=== PATIENT | female | born 1985 | race Caucasian/White ===

== ENCOUNTER 2017-08-24 16:22 | Emergency (ER) | payer OTHER ==
--- NOTE | 2017-08-24 20:51 | ED ---
General Adult HPI - General Chief complaint: Neuro Symptoms/Deficit Stated complaint: Lt face numb Time Seen by Provider: 08/24/17 20:28 Source: patient, RN notes reviewed Mode of arrival: ambulatory Limitations: no limitations - History of Present Illness Initial comments: This is a 32-year-old female who presents to the emergency department with chief complaint of left-sided facial numbness. Patient states that she has been experiencing numbness and tingling of the left side of her face since Thursday. She states that it starts at about eye level and goes down to the mandible. She states that she also noticed numbness to the tip of her tongue. 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 However, patient denies any weakness or pain to the left side of her face. She denies any other symptoms. Denies recent illnesses or infections. Denies fevers or chills, chest pain shortness of breath, abdominal pain, nausea or vomiting. - Related Data Home Medications Medication Instructions Recorded Confirmed FLUoxetine HCL [PROzac] 20 mg PO DAILY 08/24/17 08/24/17 Allergies Allergy/AdvReac Type Severity Reaction Status Date / Time No Known Allergies Allergy Verified 08/24/17 20:31 Review of Systems ROS Statement: Those systems with pertinent positive or pertinent negative responses have been documented in the HPI. ROS Other: All systems not noted in ROS Statement are negative. Past Medical History Past Medical History: No Reported History History of Any Multi-Drug Resistant Organisms: None Reported Past Surgical History: No Surgical Hx Reported Past Psychological History: No Psychological Hx Reported Smoking Status: Never smoker Past Alcohol Use History: None Reported Past Drug Use History: None Reported General Exam - General Exam Comments Initial Comments: General: Awake and alert, well-developed; in no apparent distress. HEENT: Head atraumatic, normocephalic. Pupils are equal, round and reactive to light. Extraocular movements intact. Oropharynx moist without erythema or exudate. Neck: Supple. Normal ROM. Cardiovascular: Regular rate and rhythm. No murmurs, rubs or gallops. Chest symmetrical. Respiratory: Lungs clear to auscultation bilaterally. No wheezes, rales or rhonchi. Normal respiratory effort with no use of accessory muscles. Musculoskeletal: Normal ROM, no tenderness, strength 5/5 bilateral upper and lower extremities. Ambulating normally. Skin: [place], warm and dry without rashes or lesions. Neurological: Alert and oriented x3. CN II-XII grossly intact. Altered sensation to the left side of face with sparing of forehead. No motor deficits. Speech is fluent and answers are appropriate. No focal neuro deficits. Psychiatric: Normal mood and affect. No overt signs of depression or anxiety noted. Limitations: no limitations Course Vital Signs 08/24/17 08/24/17 17:37 21:58 Temperature 98.6 F 97.1 F L Pulse Rate 62 54 L Respiratory 18 16 Rate Blood Pressure 117/74 114/76 O2 Sat by Pulse 98 97 Oximetry Medical Decision Making - Medical Decision Making This is a 32-year-old female who presented to the emergency department with chief complaint of left-sided facial numbness. This began on Thursday. Denies weakness or pain. On physical examination, there are no motor deficits. Patient does experience odd sensation with palpation into the left side of the face. Discussed computed tomography scan and checking of basic labs with patient who does state she would like to go through with it for "peace of mind. " Computed tomography scan revealed no acute abnormalities. CBC was within normal limits. CMP revealed a slightly elevated chloride, however everything else was within normal limits. Vital signs are stable and patient is in no acute distress. Recommended following up with her primary care provider within 1-2 days and return to emergency department if any new or concerning symptoms arise. Patient is in agreement with plan voices understanding. She will be discharged home at this time. All questions answered. - Lab Data Result diagrams: 08/24/17 21:09 08/24/17 21:09 Lab Results 08/24/17 08/24/17 Range/Units 21:09 21:09 WBC 5.8 (3.8-10.6) k/uL RBC 4.49 (3.80-5.40) m/uL Hgb 13.7 (11.4-16.0) gm/dL Hct 40.0 (34.0-46.0) % MCV 88.9 (80.0-100.0) fL MCH 30.5 (25.0-35.0) pg MCHC 34.3 (31.0-37.0) g/dL RDW 13.0 (11.5-15.5) % Plt Count 185 (150-450) k/uL Neutrophils % 62 % Lymphocytes % 25 % Monocytes % 6 % Eosinophils % 4 % Basophils % 0 % Neutrophils # 3.6 (1.3-7.7) k/uL Lymphocytes # 1.5 (1.0-4.8) k/uL Monocytes # 0.4 (0-1.0) k/uL Eosinophils # 0.2 (0-0.7) k/uL Basophils # 0.0 (0-0.2) k/uL Sodium 141 (137-145) mmol/L Potassium 3.8 (3.5-5.1) mmol/L Chloride 112 H (98-107) mmol/L Carbon Dioxide 23 (22-30) mmol/L Anion Gap 6 mmol/L BUN 13 (7-17) mg/dL Creatinine 0.60 (0.52-1.04) mg/dL Est GFR (CKD-EPI)AfAm >90 (>60 ml/min/1.73 sqM) Est GFR (CKD-EPI)NonAf >90 (>60 ml/min/1.73 sqM) Glucose 82 (74-99) mg/dL Calcium 8.6 (8.4-10.2) mg/dL Total Bilirubin 0.4 (0.2-1.3) mg/dL AST 18 (14-36) U/L ALT 28 (9-52) U/L Alkaline Phosphatase 54 (38-126) U/L Total Protein 6.3 (6.3-8.2) g/dL Albumin 3.6 (3.5-5.0) g/dL - Radiology Data Radiology results: report reviewed Computed tomography scan of the brain without contrast impression: Normal computed tomography scan of the brain. As read by Dr. Smith. Disposition Clinical Impression: Facial paresthesia Disposition: HOME SELF-CARE Condition: Good Instructions: Paresthesia (ED) Additional Instructions: Please follow up with primary care provider within 1-2 days. Return to emergency department if symptoms should worsen or any concerns arise. Is patient prescribed a controlled substance at d/c from ED?: No Referrals: Lindsay Almanza NPC [REFERRING] - 1-2 days Time of Disposition: 22:21
[2017-08-24 21:17] LABS: Basophils % (A) 0 %; Eosinophils # (A) 0.2 k/uL (0-0.7); Eosinophils % (A) 4 %; HGB 13.7 gm/dL (11.4-16.0); Lymphocytes # (A) 1.5 k/uL (1.0-4.8); Lymphocytes % (A) 25 %; MCH 30.5 pg (25.0-35.0); MCHC 34.3 g/dL (31.0-37.0); MCV 88.9 fL (80.0-100.0); Mean Platelet Volume 7.2; Monocytes # (A) 0.4 k/uL (0-1.0); Monocytes % (A) 6 %; Neutrophils # (A) 3.6 k/uL (1.3-7.7); Neutrophils % (A) 62 %; Platelet Count 185 k/uL (150-450); RBC 4.49 m/uL (3.80-5.40); WBC 5.8 k/uL (3.8-10.6)
[2017-08-24 21:26] LABS: ALT 28 U/L (9-52); AST 18 U/L (14-36); Albumin 3.6 g/dL (3.5-5.0); Alkaline Phosphatase 54 U/L (38-126); Anion Gap 6 mmol/L; Blood Urea Nitrogen 13 mg/dL (7-17); Calcium 8.6 mg/dL (8.4-10.2); Carbon Dioxide 23 mmol/L (22-30); Chloride 112 mmol/L (98-107); Glucose 82 mg/dL (74-99); Potassium 3.8 mmol/L (3.5-5.1); Sodium 141 mmol/L (137-145); Total Bilirubin 0.4 mg/dL (0.2-1.3); Total Protein 6.3 g/dL (6.3-8.2)
--- NOTE | 2017-08-24 21:57 | CT ---
EXAMINATION TYPE: CT brain wo con DATE OF EXAM: 08/24/2017 COMPARISON: None HISTORY: left sided facial numbness X [address] DLP: 963.6 mGycm. Automated Exposure Control for Dose Reduction was Utilized. TECHNIQUE: CT scan of the head is performed without contrast. FINDINGS: Ventricles of normal size. There is no mass effect nor midline shift. There is no sign of intracranial hemorrhage. The calvarium is intact. IMPRESSION: Normal CT scan of the brain.
[2017-08-24 21:59] VITALS: RESP 16; TEMP 97.1
[2017-08-24 22:39] VITALS: BP 110/74; PULSE 57
== END 2017-08-24 22:38 | disposition home or self-care (01) ==
LOC: EC 16:22
DX: R20.2 Paresthesia of skin (principal); Z79.899 Other long term (current) drug therapy
CPT/HCPCS: 36415; 70450; 80053; 85025; 99284

== ENCOUNTER 2019-04-05 06:15 | Inpatient (IN) | payer BC, OTHER ==
--- NOTE | 2019-04-04 19:29 | P.HPOB ---
History of Present Illness H&P Date: 04/04/19 Chief Complaint: Induction of labor This is a 34 y.o. female, 5, para 3, with an estimated date of confinement of 04/05/2019, estimated gestational age of 40-0/7 weeks, who presents for induction of labor. She admits to good movement and irregular contractions. has been uncomplicated. labs: Hepatitis B surface antigen-neg RPR-NR Rubella-immune Blood type-A+ Antibody screen-neg HIV-NR Hemoglobin-13.4 Toxoplasma-neg Random glucose-78 1 hr. GTT-139, 3 hr. GTT-wnl GBS-neg OB Hx: . Hx of 3 vaginal deliveries and 1 miscarriage. [place] Hx: No hx STDs. Review of Systems Constitutional: Denies chills, Denies fever Eyes: denies blurred vision, denies pain Ears, nose, mouth and throat: Denies headache, Denies sore throat Cardiovascular: Denies chest pain, Denies shortness of breath Respiratory: Denies cough Gastrointestinal: Reports abdominal pain (irreg. ctxs) Genitourinary: Reports pelvic pain, Reports Musculoskeletal: Reports low back pain Integumentary: Denies pruritus, Denies rash Neurological: Denies numbness, Denies weakness Past Medical History Past Medical History: No Reported History History of Any Multi-Drug Resistant Organisms: None Reported Past Surgical History: No Surgical Hx Reported Past Psychological History: No Psychological Hx Reported Smoking Status: Never smoker Past Alcohol Use History: None Reported Past Drug Use History: None Reported - Past Family History Mother Family Medical History: Diabetes Mellitus, Hypertension Medications and Allergies Home Medications Medication Instructions Recorded Confirmed Type 78/Iron/Folate 1/Dha 04/04/19 History [Prenate Dha Softgel] Allergies Allergy/AdvReac Type Severity Reaction Status Date / Time No Known Allergies Allergy Verified 08/24/17 20:31 Exam Osteopathic Statement: *. No significant issues noted on an osteopathic structural exam other than those noted in the History and Physical/Consult. HEENT: within normal limits Heart: regular rate and rhythm Lungs: clear to auscultation bilaterally Abdomen: heart tones:140's by doppler Extremities: Neg. Haile's Assessment and Plan (1) 40 weeks gestation of Status: Acute Code(s): Z3A.40 - 40 WEEKS GESTATION OF SNOMED Code(s): 53931630 Plan: Admission for induction of labor. Expectant management. Epidural anesthesia if desired.
[2019-04-05] MEDS ORDERED: OXYTOCIN 10 UNIT/ML 1 ML VIAL IM PRN (06:21)
[2019-04-05] MEDS ORDERED: LIDOCAINE 0.5% (PF) 5 MG/ML (50 ML SDV) SQ PRN (06:21)
[2019-04-05] MEDS ORDERED: METHYLERGONOVINE 0.2 MG/ML 1 ML AMP IM PRN (06:21)
[2019-04-05] MEDS ORDERED: TERBUTALINE 1 MG/ML VIAL SQ PRN (06:21)
[2019-04-05] MEDS ORDERED: LIDOCAINE 1% 20 ML VIAL (10MG/ML) FOR IV START INTRADERMA PRN (06:21)
[2019-04-05] MEDS ORDERED: CARBOPROST TROMETHAMINE 250 MCG/ML 1 ML AMP IM PRN (06:21)
[2019-04-05] MEDS ORDERED: OXYTOCIN 30 UNITS/500 ML NS 30 UNIT in SALINE 1 500ML.BAG IV SCH (06:21)
[2019-04-05] MEDS: LACTATED RINGERS 1,000 ML IV SCH ×2 (06:30→10:20)
[2019-04-05 06:41] LABS: Basophils % (A) 0 %; Eosinophils # (A) 0.2 k/uL (0-0.7); Eosinophils % (A) 2 %; HCT 34.6 % (34.0-46.0); HGB 11.5 gm/dL (11.4-16.0); Lymphocytes % (A) 13 %; MCH 28.7 pg (25.0-35.0); MCHC 33.2 g/dL (31.0-37.0); MCV 86.6 fL (80.0-100.0); Mean Platelet Volume 8.4; Monocytes # (A) 0.5 k/uL (0-1.0); Monocytes % (A) 6 %; Neutrophils # (A) 5.8 k/uL (1.3-7.7); Neutrophils % (A) 76 %; Platelet Count 142 k/uL (150-450); RDW 14.2 % (11.5-15.5); WBC 7.6 k/uL (3.8-10.6)
[2019-04-05] MEDS ORDERED: fentaNYL (PF) 50 MCG/ML 5 ML AMP ONE (09:52)
[2019-04-05] MEDS ORDERED: ROPIVACAINE 5MG/ML 20ML VIAL ONE (09:52)
[2019-04-05] MEDS ORDERED: SODIUM CHLORIDE 0.9% 100 ML BAG ONE (09:52)
[2019-04-05] MEDS ORDERED: ACETAMINOPHEN TAB 325 MG TAB PO PRN (12:05)
[2019-04-05] MEDS ORDERED: diphenhydrAMINE 25 MG CAP PO PRN (12:05)
[2019-04-05] MEDS ORDERED: WITCH HAZEL 1 EACH MED..PAD TOPICAL PRN (12:05)
[2019-04-05] MEDS ORDERED: diphenhydrAMINE 50 MG/ML 1 ML VIAL IVP PRN ×2 (12:05)
[2019-04-05] MEDS ORDERED: OXYTOCIN 20 UNITS/1000 ML NS 1,000 ML IV SCH (12:05)
[2019-04-05] MEDS ORDERED: SIMETHICONE 80 MG CHEWABLE PO PRN (12:05)
[2019-04-05] MEDS ORDERED: diphenhydrAMINE 50 MG CAP PO PRN (12:05)
[2019-04-05] MEDS ORDERED: BENZOCAINE/MENTHOL SPRAY 1 GM/SPRAY AEROSOL TOPICAL PRN (12:05)
[2019-04-05] MEDS ORDERED: LANOLIN CREAM 5 GM TUBE TOPICAL PRN (12:05)
[2019-04-05] MEDS ORDERED: ZOLPIDEM 5 MG TAB PO PRN (12:05)
[2019-04-05] MEDS ORDERED: HYDROCORTISONE 2.5% RECTAL CREAM 30 GM TUBE RECTAL PRN (12:05)
--- NOTE | 2019-04-05 12:40 | P.PROBDLV ---
Vaginal Delivery Note - . Vaginal Delivery Note: The patient progressed to complete dilation after oxytocin induction of labor and artificial rupture of membranes with clear fluid noted. She did receive epidural anesthesia while in labor. Once reaching complete dilation, she began pushing. Infant's head came to a crown. With one further push, the 's head delivered across the perineum followed by the anterior shoulder. Nose and mouth are bulb suctioned at the perineum. With one further push, the remainder the easily delivered and was placed on mother's abdomen. Cord was clamped and cut and was taken to warmer for evaluation. A viable male was noted with scores of 8 at 1 minute and 9 at 5 minutes and weight of 8 lbs. 8 oz. Placenta delivered shortly thereafter, intact, with a three-vessel cord. Uterus contracted well after oxytocin was given and uterine massage was carried out. Her bladder was drained with a straight cath after delivery. nspection of the perineum revealed no perineal lacerations. Estimated blood loss is approximately 150 mL's. Both mother and are in stable condition.
[2019-04-05] MEDS: IBUPROFEN 600 MG TAB PO PRN ×2 (14:50→20:13)
[2019-04-05] MEDS ORDERED: SENNOSIDES-DOCUSATE SODIUM 1 EACH TAB PO SCH (20:00)
[2019-04-06 05:33] VITALS: RESP 14
[2019-04-06 06:54] LABS: Basophils % (A) 0 %; Eosinophils # (A) 0.2 k/uL (0-0.7); Eosinophils % (A) 2 %; HCT 32.8 % (34.0-46.0); HGB 10.6 gm/dL (11.4-16.0); Hypochromasia Slight; Lymphocytes # (A) 1.2 k/uL (1.0-4.8); Lymphocytes % (A) 13 %; MCH 28.5 pg (25.0-35.0); MCHC 32.3 g/dL (31.0-37.0); Mean Platelet Volume 8.9; Monocytes # (A) 0.4 k/uL (0-1.0); Monocytes % (A) 5 %; Neutrophils # (A) 7.1 k/uL (1.3-7.7); Neutrophils % (A) 77 %; Platelet Count 147 k/uL (150-450); RBC 3.73 m/uL (3.80-5.40); RDW 14.1 % (11.5-15.5); WBC 9.2 k/uL (3.8-10.6)
[2019-04-06] MEDS: IBUPROFEN 600 MG TAB PO PRN (07:37)
[2019-04-06 08:01] VITALS: BP 114/57; PULSE 65; TEMP 96.9
--- NOTE | 2019-04-06 08:20 | P.DS ---
Providers Date of admission: 04/05/19 06:15 Expected date of discharge: 04/06/19 Attending physician: Babs Shaikh Primary care physician: Stated None - Discharge Diagnosis(es) (1) 40 weeks gestation of Current Visit: No Status: Acute Hospital Course: This is a 34-year-old female 5 para 3 at 40-0/7 weeks who presented for induction of labor. She underwent oxytocin induction of labor and delivered vaginally a viable male on 04/05/2019 with scores of 8 at 1 minute and 9 at 5 minutes and infant weight of 8 lbs. 8 oz. Her course has been uncomplicated. Lochia is decreasing. She is bottle feeding. Vital signs are stable. Abdomen is soft with fundus firm and nontender. Extremities show negative Homans. Impression is status post vaginal delivery day #1. Plan is to discharge home today. Routine instructions are given. She is advised to call the office if she has any further questions or concerns prior to her primary time. She will be given a prescription for ibuprofen. She is instructed to follow-up in the office in 6 weeks for check. Procedures: Oxytocin induction of labor Spontaneous vaginal delivery of a viable male infant on 04/05/2019 Patient Condition at Discharge: Stable Plan - Discharge Summary New Discharge Prescriptions: New RX: Ibuprofen [Motrin] 600 mg PO Q6HR PRN #60 tab PRN Reason: Mild Pain Or Fever >= 100.5 No Action RX: 78/Iron/Folate 1/Dha [Prenate Dha Softgel] 1 tab PO ONCE Discharge Medication List RX: 78/Iron/Folate 1/Dha [Prenate Dha Softgel] 1 tab PO ONCE 04/04/19 [History] RX: Ibuprofen [Motrin] 600 mg PO Q6HR PRN #60 tab 04/06/19 [Rx] Follow up Appointment(s)/Referral(s): Babs Shaikh DO [Doctor of Osteopathic Medicine] - 6 Weeks Activity/Diet/Wound Care/Special Instructions: Instructions 1. Do not begin any exercise program for 3 weeks. 2. Do not resume sexual relations for 3 weeks or longer if uncomfortable. 3. You may take tub baths or showers at any time. 4. You may use tampons if desired after 3 weeks. 5. Keep the area of episiotomy (stitches) clean and dry. 6. If you are not nursing, wear a good fitting, supportive bra during the day and limit fluid intake for at least 1 week to prevent breast engorgement. 7. Call the office, [phone], within the next week to make appointment for your 6 week checkup if it has not already been made. 8. Report any of the following occurrences to the doctor promptly: a. Heavy, excessive bleeding b. Chills, fever c. Burning or frequency of urination d. Pain or redness and breasts if nursing e. Increasing pain or swelling in episiotomy (stitches). In addition to the above instructions, the following additional should be followed: 1. No heavy lifting or straining (exercising) until after 6 week checkup. 2. Keep abdominal incision clean and dry: You may wear a dressing if more comfortable. 3. Make office appointment for 10 days after going home or as instructed by her doctor. Discharge Disposition: HOME SELF-CARE
== END 2019-04-06 11:15 | disposition home or self-care (01) | DRG 807 ==
LOC: 4FBP 06:15
PROVIDERS: ADMIT Obstetrics & Gynecology; ATTEND Obstetrics & Gynecology
PROC: 00HU33Z Insertion of Infusion Device into Spinal Canal, Percutaneous Approach (ICD-10-PCS; principal; 2019-04-05)
PROC: 3E033VJ Introduction of Other Hormone into Peripheral Vein, Percutaneous Approach (ICD-10-PCS; principal; 2019-04-05)
PROC: 10E0XZZ Delivery of Products of Conception, External Approach (ICD-10-PCS; principal; 2019-04-05)
PROC: 3E0R3BZ Introduction of Anesthetic Agent into Spinal Canal, Percutaneous Approach (ICD-10-PCS; principal; 2019-04-05)
PROC: 10907ZC Drainage of Amniotic Fluid, Therapeutic from Products of Conception, Via Natural or Artificial Opening (ICD-10-PCS; principal; 2019-04-05)
DX: O80 Encounter for full-term uncomplicated delivery (principal); Z37.0 Single live birth; Z3A.40 40 weeks gestation of pregnancy; Z79.899 Other long term (current) drug therapy; Z83.3 Family history of diabetes mellitus; Z82.49 Family history of ischemic heart disease and other diseases of the circulatory system
CPT/HCPCS: 85025; 86850; 86900; 86901

== ENCOUNTER → 2022-07-21 | Outpatient (CLI) | payer OTHER ==
--- NOTE | 2022-07-21 15:10 | US ---
EXAMINATION TYPE: Transabdominal DATE OF EXAM: 07/21/2022 2:09 PM COMPARISON: NONE CLINICAL INDICATION: Female, 37 years old with history of Z36.89 ENCOUNTER FOR OTHER SPECIFIED ANTENA CHAGO SCR; Pt states confirm dates, no complaints at this time EXAM PERFORMED: Transabdominal (TA) EXAM MEASUREMENTS: GESTATIONAL AGE / DATING Physician Established: (8 weeks/2 days) EDC: 02/28/2023 Dates by LMP: (8 weeks/2 days) EDC: 02/28/2023 Dates by First Scan: No previous this is first scan Dates by Current Scan for: (8 weeks/3 days) EDC: 02/27/2023 MATERNAL ANATOMY Uterus: 11.3 x 6.0 x 7.8 cm Right Ovary: 3.5 x 2.0 x 2.2 cm Left Ovary: 3.5 x 2.6 x 2.5 cm Post CDS / Adnexa: wnl Presence of free fluid: No Presence of subchorionic bleed: No GESTATION / SURVEY CRL: 1.9 (8 weeks/3 days) MSD: wnl Yolk Sac (normal less than 6mm): 4mm Heart Rate: 169 bpm Rhythm: Normal IUP: Viable IUP Date of LMP: 05/24/2022 Single, viable IUP/ No abnormality visualized at this time IMPRESSION: Single viable intrauterine as noted above.
== END | disposition home or self-care (01) ==
LOC: RADUSWWP 13:39
PROVIDERS: ATTEND Obstetrics & Gynecology
DX: Z36.89 Encounter for other specified antenatal screening (principal)
CPT/HCPCS: 76801

== ENCOUNTER 2023-02-25 22:42 | Inpatient (IN) | payer OTHER ==
[2023-02-25 23:17] LABS: Glucose,Whole Blood 115 mg/dL (70-110)
[2023-02-25] MEDS ORDERED: OXYTOCIN 10 UNIT/ML 1 ML VIAL IM PRN (23:18)
[2023-02-25] MEDS ORDERED: miSOPROStoL 200 MCG TAB PO PRN (23:18)
[2023-02-25] MEDS ORDERED: CARBOPROST TROMETHAMINE 250 MCG/ML 1 ML AMP IM PRN (23:18)
[2023-02-25] MEDS ORDERED: TRANEXAMIC 1,000 MG/100ML-NACL 1,000 MG in EMPTY BAG 1 BAG IV PRN (23:18)
[2023-02-25] MEDS ORDERED: METHYLERGONOVINE 0.2 MG/ML 1 ML AMP IM PRN (23:18)
[2023-02-25] MEDS ORDERED: LIDOCAINE 0.5% (PF) 5 MG/ML (50 ML SDV) SQ PRN (23:18)
[2023-02-25] MEDS ORDERED: TERBUTALINE 1 MG/ML VIAL SQ PRN (23:18)
[2023-02-25] MEDS ORDERED: LACTATED RINGERS 1,000 ML IV SCH (23:30)
[2023-02-25] MEDS ORDERED: OXYTOCIN 30 UNITS/500 ML NS 30 UNIT in SALINE 1 500ML.BAG IV SCH (23:30)
[2023-02-25 23:37] LABS: Basophils % (A) 0 %; Eosinophils # (A) 0.3 k/uL (0-0.7); Eosinophils % (A) 3 %; HCT 36.6 % (34.0-46.0); HGB 11.8 gm/dL (11.4-16.0); Lymphocytes # (A) 1.2 k/uL (1.0-4.8); Lymphocytes % (A) 10 %; MCH 28.9 pg (25.0-35.0); MCHC 32.3 g/dL (31.0-37.0); MCV 89.3 fL (80.0-100.0); Mean Platelet Volume 9.9; Monocytes # (A) 0.7 k/uL (0-1.0); Monocytes % (A) 6 %; Neutrophils # (A) 9.3 k/uL (1.3-7.7); Neutrophils % (A) 79 %; Platelet Count 153 k/uL (150-450); RDW 14.7 % (11.5-15.5); WBC 11.7 k/uL (3.8-10.6)
--- NOTE | 2023-02-25 23:44 | P.HPOB ---
History of Present Illness H&P Date: 02/25/23 Chief Complaint: Contractions This patient is a pleasant 37-year-old 6 para 4 female estimated date of confinement 02/28/2023 estimated gestational age 39-4/7 weeks who presents to labor and delivery with complaints of contractions that she states began yesterday. On admission patient is 7 cm dilated in active labor. care is complicated by insulin-dependent gestational diabetes which she states has good control. This has been managed by maternal medicine. is also complicated by advanced maternal age and she has been on baby aspirin since 12 weeks. She's had normal anatomy ultrasounds and declined other genetic testing. Patient did have an abnormal quad screen with an increased risk of Down syndrome. Patient's most recent ultrasound states she was 7-1/2 pounds. Review of Systems Genitourinary: Reports Menstruation: Reports amenorrhea Past Medical History Past Medical History: No Reported History Additional Past Medical History / Comment(s): For previous vaginal deliveries uncomplicated. History of Any Multi-Drug Resistant Organisms: None Reported Past Surgical History: No Surgical Hx Reported Additional Past Surgical History / Comment(s): dental work Past Anesthesia/Blood Transfusion Reactions: No Reported Reaction Smoking Status: Never smoker - Past Family History Mother Family Medical History: Diabetes Mellitus, Hypertension Medications and Allergies Home Medications Medication Instructions Recorded Confirmed Type 78/Iron/Folate 1/Dha 1 tab PO ONCE 04/04/19 04/05/19 History [Prenate Dha Softgel] Allergies Allergy/AdvReac Type Severity Reaction Status Date / Time No Known Allergies Allergy Verified 02/25/23 22:50 Exam Intake and Output 02/25/23 02/25/23 02/26/23 14:59 22:59 06:59 Other: Weight 90.265 kg - OBG Physical Exam Abdomen: bowel sounds normal, no diffuse tenderness, no bruit present, no guarding noted, no hepatomegaly, no splenomegaly, no mass Vulva: both: normal Vagina: normal moisture, no discharge Cervix: no lesion (Cervix is 8 cm dilated and -2 station vertex), no discharge Uterus: enlarged Results blood work shows she is a positive, rubella immune, RPR is nonreactive, HIV is nonreactive, group B strep was negative, Glucola was 201. Patient did have an abnormal quad screen was negative maternal medicine evaluation. Result Diagrams: 02/25/23 23:17 Abnormal Lab Results - Last 24 Hours (Table) 02/25/23 02/25/23 Range/Units 23:15 23:17 WBC 11.7 H (3.8-10.6) k/uL Neutrophils # 9.3 H (1.3-7.7) k/uL POC Glucose (mg/dL) 115 H (70-110) mg/dL Assessment and Plan Assessment: This is a pleasant 37-year-old 6 para 4 female 39-4/7 weeks gestation with insulin-dependent gestational diabetes, abnormal quad screen with increased risk of Down syndrome, and active labor. Plan at this time is anticipate vaginal delivery. I did discuss pain control options with the patient this time she declines an epidural. (1) 39 weeks gestation of Current Visit: Yes Status: Acute Code(s): Z3A.39 - 39 WEEKS GESTATION OF SNOMED Code(s): 73445958 (2) Gestational diabetes Current Visit: Yes Status: Acute Code(s): O24.419 - GESTATIONAL DIABETES MELLITUS IN , UNSP CONTROL SNOMED Code(s): 21568934 (3) Elderly multigravida Current Visit: Yes Status: Acute Code(s): O09.529 - SUPERVISION OF ELDERLY MULTIGRAVIDA, UNSPECIFIED TRIMESTER SNOMED Code(s): 861879754 (4) Active labor Current Visit: Yes Status: Acute Code(s): QID2905 - SNOMED Code(s): 659123104
[2023-02-26] MEDS ORDERED: HYDROCORTISONE 2.5% RECTAL CREAM 30 GM TUBE RECTAL PRN (00:08)
[2023-02-26] MEDS ORDERED: LANOLIN CREAM 5 GM TUBE TOPICAL PRN (00:08)
[2023-02-26] MEDS ORDERED: ACETAMINOPHEN TAB 325 MG TAB PO PRN (00:08)
[2023-02-26] MEDS ORDERED: BENZOCAINE/MENTHOL SPRAY 1 GM/SPRAY AEROSOL TOPICAL PRN (00:08)
[2023-02-26] MEDS ORDERED: ZOLPIDEM 5 MG TAB PO PRN (00:08)
[2023-02-26] MEDS ORDERED: SIMETHICONE 80 MG CHEWABLE PO PRN (00:08)
[2023-02-26] MEDS ORDERED: diphenhydrAMINE 25 MG CAP PO PRN (00:08)
[2023-02-26] MEDS ORDERED: diphenhydrAMINE 50 MG/ML 1 ML VIAL IVP PRN (00:08)
--- NOTE | 2023-02-26 00:14 | P.PROBDLV ---
Vaginal Delivery Note - . Vaginal Delivery Note: Normal spontaneous vaginal delivery viable male Apgars 9 and 9 delivery time was 2358 hrs. Please see dictated H&P for intimate details of this patient's admission. In brief summary this is a pleasant 37-year-old 6 para 4 female 39-4/7 weeks who is admitted to labor and delivery in active labor. Patient is artificial rupture membranes at 8 cm dilated for clear fluid. Labor quickly progresses thereafter and she gets to complete. Patient pushes the head to the perineum the posterior perineum was supported. We have controlled delivery of infant's head over the intact perineum. Mouth and nares are bulb suctioned. Infant's head is straight occiput anterior presentation. There is no evidence of a nuchal cord. With gentle downward traction we then have deliver the anterior and posterior shoulder and rest this infant's body. This is a vigorous viable male Apgars are 9 and 9 delivery time is 2358 hrs. has spontaneous respirations and good cry and grossly appears normal. After delivery of the infant the umbilical cord is allowed to quit pulsating and it is then doubly clamped and cut. It appears to be trivascular. The placenta is then spontaneously delivered intact. Estimated blood loss is approximately 50 mL. There are no lacerations and no repairs required. and mother are stable in delivery room. All counts are correct 3. There are no complications.
[2023-02-26] MEDS ORDERED: OXYTOCIN 30 UNITS/500 ML NS 30 UNIT in SALINE 1 500ML.BAG IV SCH (00:15)
[2023-02-26] MEDS: IBUPROFEN 600 MG TAB PO PRN ×2 (04:48→10:53)
[2023-02-26] MEDS ORDERED: bisacodyL 10 MG SUPP RECTAL PRN (09:00)
[2023-02-26] MEDS: SENNOSIDES-DOCUSATE SODIUM 1 EACH TAB PO SCH ×2 (09:00→21:06)
[2023-02-26 15:49] VITALS: RESP 16
--- NOTE | 2023-02-27 06:35 | P.PNOBGVD ---
Subjective - Subjective Patient reports: Reports appetite normal, Reports voiding normally, Reports pain well controlled, Reports ambulating normally : doing well Objective - Latest Vital Signs Latest vital signs: Vital Signs Temp Pulse Resp BP Pulse Ox 02/27/23 00:00 96.6 F L 74 16 126/72 02/26/23 15:25 98.9 F 68 16 122/80 97 02/26/23 12:00 98.1 F 73 17 124/75 96 02/26/23 07:57 98.6 F 60 16 109/59 Intake and Output 02/26/23 02/26/23 02/27/23 14:59 22:59 06:59 Other: # Voids 1 2 - Exam Lungs: bilateral: normal Chest: Normal S1, Normal S2 Extremities: Present: normal Abdomen: Present: normal appearance, soft Uterus: Present: normal, firm Assessment and Plan Assessment: Post day #1. Patient is resting without complaints and wishes to go uli e. Vital signs are stable and she is afebrile. Uterus is firm nontender and she is having normal lochia. My impression is normal course. Plan is to continue routine care and discharge home later today. (1) 39 weeks gestation of Current Visit: Yes Status: Acute Code(s): Z3A.39 - 39 WEEKS GESTATION OF SNOMED Code(s): 84355205 (2) Gestational diabetes Current Visit: Yes Status: Acute Code(s): O24.419 - GESTATIONAL DIABETES MELLITUS IN , UNSP CONTROL SNOMED Code(s): 34076363 (3) Elderly multigravida Current Visit: Yes Status: Acute Code(s): O09.529 - SUPERVISION OF ELDERLY MULTIGRAVIDA, UNSPECIFIED TRIMESTER SNOMED Code(s): 161827798 (4) Active labor Current Visit: Yes Status: Acute Code(s): BDD8983 - SNOMED Code(s): 966341546
--- NOTE | 2023-02-27 06:39 | P.DS ---
Providers Date of admission: 02/25/23 23:04 Expected date of discharge: 02/27/23 Attending physician: Babs Shaikh Primary care physician: Stated None - Discharge Diagnosis(es) (1) 39 weeks gestation of Current Visit: Yes Status: Acute (2) Gestational diabetes Current Visit: Yes Status: Acute (3) Elderly multigravida Current Visit: Yes Status: Acute (4) Active labor Current Visit: Yes Status: Acute Hospital Course: Please see dictated H&P for intimate details of this patient's admission. Brief summary this pleasant 37-year-old 6 para 4 female 39-4/7 weeks gestation admitted to labor and delivery in active labor. Patient quickly goes on to have a vaginal delivery viable male infant. Please see dictated delivery note. Po stpartum day 1 patient's felt be stable for discharge home follow up with Dr. Flores 6 weeks. Procedures: Normal spontaneous vaginal delivery Patient Condition at Discharge: Good Plan - Discharge Summary New Discharge Prescriptions: New Ibuprofen [Motrin] 600 mg PO Q6HR PRN #30 tab PRN Reason: Mild Pain (Scale 1 To 3) No Action 78/Iron/Folate 1/Dha [Prenate Dha Softgel] 1 tab PO ONCE Discharge Medication List 78/Iron/Folate 1/Dha [Prenate Dha Softgel] 1 tab PO ONCE 04/04/19 [History] Ibuprofen [Motrin] 600 mg PO Q6HR PRN #30 tab 02/27/23 [Rx] Follow up Appointment(s)/Referral(s): Babs Shaikh DO [Doctor of Osteopathic Medicine] - 04/14/23 11:30 am Patient Instructions/Handouts: Vaginal Delivery (DC) Activity/Diet/Wound Care/Special Instructions: No intercourse or anything per vagina for 6 weeks. Please call if any fever, chills, excessive vaginal bleeding, and/or abdominal pain Discharge Disposition: HOME SELF-CARE
[2023-02-27 07:21] LABS: Basophils % (A) 0 %; Eosinophils # (A) 0.4 k/uL (0-0.7); Eosinophils % (A) 5 %; HCT 37.4 % (34.0-46.0); HGB 12.4 gm/dL (11.4-16.0); Lymphocytes # (A) 1.1 k/uL (1.0-4.8); Lymphocytes % (A) 13 %; MCH 30.3 pg (25.0-35.0); MCV 91.8 fL (80.0-100.0); Mean Platelet Volume 9.3; Monocytes # (A) 0.4 k/uL (0-1.0); Monocytes % (A) 5 %; Neutrophils # (A) 6.1 k/uL (1.3-7.7); Neutrophils % (A) 74 %; Platelet Count 137 k/uL (150-450); RBC 4.08 m/uL (3.80-5.40); RDW 14.7 % (11.5-15.5); WBC 8.2 k/uL (3.8-10.6)
[2023-02-27] MEDS: SENNOSIDES-DOCUSATE SODIUM 1 EACH TAB PO SCH (08:15)
[2023-02-27 08:27] VITALS: BP 128/72; PULSE 70; TEMP 98.6
--- NOTE | 2023-03-02 06:55 | P.MSEPDOC ---
Presenting Problems - Arrival Data Date of Arrival on Unit: 02/25/23 Time of Arrival on Unit: 23:00 Mode of Transport: Wheelchair - Complaint OB-Reason for Admission/Chief Complaint: Possible Onset of Labor Comment: Pt presents to triage with c/o cx since 1929, 3-5 min apart Medical History - Information : 6 Para: 4 Term: 4 : 0 Abortions: Spontaneous or Elective: 1 Number of Living Children: 4 - Gestational Age Gestational Age by DUDLEY (wks/days): 39 Weeks and 5 Days - History Complications: GDM Review of Systems - Review of Systems Constitutional: No problems Breast: No problems ENT: No problems Cardiovascular: No problems Respiratory: No problems Gastrointestinal: No problems Genitourinary: No problems Musculoskeletal: No problems Neurological: No problems Skin: No problems Vital Signs - Temperature Temperature: 98.6 F Temperature Source: Oral - Pulse Pulse Oximetery Pulse Rate: 70 Pulse Assessment Method: Pulse Oximetry - Respirations Respiratory Rate: 16 Oxygen Delivery Method: Room Air O2 Sat by Pulse Oximetry: 99 - Blood Pressure Right Arm Blood Pressure: 128/72 Blood Pressure Mean: 90 Blood Pressure Source: Automatic Cuff Medical Screen Scoring - Cervical Exam Dilation (cm): 7 Effacement (%): 80 Station: -2 Membranes: Intact - Uterine Contractions Frequency From (mins): 3 Frequency To (mins): 5 Intensity: Moderate Resting: Soft to palpation - Assessment - Baby A Heart Rate - NICHD Category: Category I (Normal) NST: Reactive Physician Notification - Physician Notified Physician Notified Date: 02/25/23 Physician Notified Time: 11:06 Physician: Desmond Mendieta - Notification Comment Comment: Pt presents to triage with c/o cx since 1929, 3-5 min apart. , 39 and 4, cervic 7/80/-1, GBS neg, intact, orders to admit for labor Maternal Triage Index - Maternal Triage Index Presenting for scheduled procedure w/no complaint: No - Stat/Priority 1 Stat Priority 1: No - Urgent/Priority 2 Urgent Priority 2: No - Prompt/Priority 3 Prompt Priority 3: Yes Criteria Met for Priority 3: Pt presents to triage with c/o cx since 1929, 3-5 min apart Disposition - Disposition OB Disposition: Admit, LDRP Suite Discharge Date: 02/27/23 Discharge Time: 13:00 I agree with the RN Medical Screening Exam: Yes Case reviewed; plan agreed upon as documented in EMR&OBIX.: Yes Diagnosis: ENCOUNTER FOR FULL-TERM UNCOMPLICATED DELIVERY
== END 2023-02-27 13:00 | disposition home or self-care (01) | DRG 560 ==
LOC: FBPOP 22:42 → 4FBP 23:04
PROVIDERS: ADMIT Obstetrics & Gynecology; ATTEND Obstetrics & Gynecology
PROC: 10E0XZZ Delivery of Products of Conception, External Approach (ICD-10-PCS; principal; 2023-02-25)
PROC: 10907ZC Drainage of Amniotic Fluid, Therapeutic from Products of Conception, Via Natural or Artificial Opening (ICD-10-PCS; principal; 2023-02-25)
DX: O24.424 Gestational diabetes mellitus in childbirth, insulin controlled (principal); Z37.0 Single live birth; Z3A.39 39 weeks gestation of pregnancy; Z83.3 Family history of diabetes mellitus; Z79.82 Long term (current) use of aspirin; Z79.4 Long term (current) use of insulin
CPT/HCPCS: 59025; 83036; 84112; 85025; 86850; 86900; 86901; 88307; 99213